=== PATIENT | male | born 1945 | race Two or more races ===

== ENCOUNTER 2023-10-21 06:25 | Day surgery (SDC) | payer OTHER, MEDICAID ==
[2023-10-21] VITALS (7 sets, daily range): BP systolic 116–130; BP diastolic 63–70; PULSE 49–61; RESP 15–18; TEMP 97.9; O2SAT 95–97
[~2023-10-21] VITALS: Ht 167.6 cm; Wt 69.4 kg
[2023-10-21] MEDS ORDERED: IODIXANOL 320MG/ML 100ML BTL IV ONE (08:45)
[2023-10-21] MEDS ORDERED: LIDOCAINE 2%HCL (LOCAL ANESTH.) INJ 20ML MDV ONE (08:45)
[2023-10-21] MEDS ORDERED: ANGIOMAX 250 MG VIAL IV ONE (08:52)
[2023-10-21] MEDS ORDERED: VERAPAMIL 2.5MG/ML INJ 2ML VIAL IV ONE (08:53)
[2023-10-21] MEDS ORDERED: SODIUM CHL 0.9% 0 ML ONE (08:53)
[2023-10-21] MEDS ORDERED: MIDAZOLAM HCL 2MG/2ML 2ml VIAL (1mg/ml) ONE (08:53)
[2023-10-21] MEDS ORDERED: fentaNYL CITRATE 100 MCG/2 ML VL ONE (08:53)
[2023-10-21] MEDS ORDERED: HEPARIN SODIUM (PORCINE) 5000 UNITS/ML 1ML VIAL ONE (08:53)
[2023-10-21] MEDS ORDERED: SODIUM CHL 0.9% 50 ML ONE (08:55)
[2023-10-21] MEDS ORDERED: OMEP-434 PO (10:12)
[2023-10-21] MEDS ORDERED: LISI20TA56 PO (10:12)
[2023-10-21] MEDS ORDERED: LEVO50TA7 PO (10:12)
[2023-10-21] MEDS ORDERED: ASPI81CH49 PO (10:12)
== END 2023-10-21 11:50 | disposition home or self-care (01) ==
LOC: CATH 06:25
PROVIDERS: ATTEND Internal Medicine
DX: I25.118 Atherosclerotic heart disease of native coronary artery with other forms of angina pectoris (principal); R94.39 Abnormal result of other cardiovascular function study; I10 Essential (primary) hypertension; E78.5 Hyperlipidemia, unspecified; E03.9 Hypothyroidism, unspecified; Z79.899 Other long term (current) drug therapy; Z79.890 Hormone replacement therapy; R07.89 Other chest pain; R06.02 Shortness of breath
CPT/HCPCS: 93458; C1725; C1894; J1644; J2250; J3010; Q9967; 99152